=== PATIENT | male | born 1955 | race Caucasian/White ===

== ENCOUNTER 2022-08-26 08:33 | Emergency (ER) | payer MEDICARE, OTHER, SELFPAY ==
--- NOTE | ~2022-08-26 | XR_ITS ---
Right Shoulder Technique: AP and scapular Y views were obtained. Clinical History: Pain Findings: No acute fracture identified. There is widening of the coracoclavicular distance. Mild unde rlying AC joint degenerative change present. Glenohumeral joint is preserved. Soft tissues are unrema rkable. Impression: Grade 3 AC joint separation with presumed underlying rupture of the coracoclavicular ligaments. No acute fracture evident. Reviewed, dictated and finalized at location . [employer] Impression: Grade 3 AC joint separation with presumed underlying rupture of the coracoclavi cular ligaments. No acute fracture evident.
--- NOTE | 2022-08-26 08:43 | ED.UPPEXIN ---
HPI - Extremity Injury (Upper) General Chief Complaint: Extremity Injury, Upper Stated Complaint: right shoulder injury Time Seen by Provider: 08/26/22 08:43 Source: patient and RN notes reviewed History of Present Illness HPI narrative: patient is a 67-year-old male who presents to urgent care with complaints of right shoulder pain. Patient states the 1st week of June he was bull riding and fell forward onto his right shoulder. Patient states it did knock him out but he was able to get up and road and finals at day. Patient has not been taking anything [id number] for his pain. He has continued his normal activity with 100 pushups per day, sit-ups and running 5 miles. Patient states that it only hurts at certain movements. Denies any injury to the shoulder in the past. No other acute complaints. No acute distress noted. Patient aware of the plan of care. Some parts of this dictation were generated by voice recognition software and may contain typographical and/or grammatical inaccuracies. Related Data Home Medications Medication Instructions Recorded Confirmed amlodipine 10 mg tablet 10 mg PO DAILY 08/26/22 08/26/22 Review of Systems Review of Systems: CONSTITUTIONAL: Denies fever, chills, or sweats. EYES: Denies visual changes, redness, or discharge. ENT: Denies rhinorrhea, congestion, sore throat, or otalgia. CARDIOVASCULAR: Denies chest pain, palpitations, or edema. RESPIRATORY: Denies cough or dyspnea. GASTROINTESTINAL: Denies abdominal pain, nausea, vomiting, or diarrhea. GENITOURINARY: Denies dysuria or hematuria. SKIN: Denies rash or itching. MUSCULOSKELETAL: Denies back pain, joint pain, or myalgia. NEUROLOGIC: Denies headache, numbness, or weakness. All other systems reviewed are negative, except as documented in HPI. PMFSH Comments At the time of my signature, I reviewed and agree with the nursing past medical, surgical, social, and family history. There is no relevant family history pertinent to the patient complaint. Exam Narrative: GENERAL: This is a well-nourished, well-developed patient, in no apparent distress. HEAD: normocephalic, atraumatic. EYES: PERRL. Sclera clear/white. Vision is grossly intact. EARS: External ears normal NOSE: External nose normal with no obvious nasal discharge, nares without redness, no rhinorrhea. THROAT: Mucous membranes moist NECK: Neck supple SKIN: warm, intact with no suspicious lesions or rash, good texture and turgor. NEURO: awake, alert, and oriented to person, place and time. There were no obvious focal neurologic abnormalities. EXTREMITIES: Positive strong right radial pulse with capillary refill less than 2 seconds. Range of motion to right upper extremity within normal limits without any exacerbated pain. Notable edema to the anterior joint space of the right shoulder without ecchymosis or erythema. No tenderness or crepitus over the clavicle region. Course Course Level of Care: Express Care Visit Vital Signs Vital signs: Vital Signs Temperature 98.7 F 08/26/22 08:55 Pulse Rate 69 08/26/22 08:55 Respiratory Rate 16 08/26/22 08:55 Blood Pressure 140/77 08/26/22 08:55 Pulse Oximetry 98 08/26/22 08:55 Oxygen Delivery Room Air 08/26/22 08:55 Temperature 98.7 F 08/26/22 08:55 Pulse Rate 69 08/26/22 08:55 Respiratory Rate 16 08/26/22 08:55 Blood Pressure 140/77 08/26/22 08:55 Pulse Oximetry 98 08/26/22 08:55 Oxygen Delivery Room Air 08/26/22 08:55 reviewed MDM - Extremity Injury (Upper) MDM Narrative Medical decision making narrative: Reviewed the x-ray results with the patient. He is aware that there was no fracture however he does have an AC separation to the shoulder joint. Advised to follow-up with referred orthopedics for further evaluation and treatment. Use Tylenol/ ibuprofen as needed. Avoid any strenuous activities such as pushups, heavy lifting/ pushing / pulling. Follow up wit
[2022-08-26 08:55] VITALS: BP 140/77; PULSE 69; RESP 16; TEMP 37.1; O2SAT 98
== END 2022-08-26 09:20 | disposition home or self-care (01) ==
PROVIDERS: Emergency Provider Nurse Practitioner Family
DX: S43.101A Unspecified dislocation of right acromioclavicular joint, initial encounter (principal); V80.018A Animal-rider injured by fall from or being thrown from other animal in noncollision accident, initial encounter; E78.00 Pure hypercholesterolemia, unspecified; I10 Essential (primary) hypertension
CPT/HCPCS: 73030; 99213; G0463